=== PATIENT | male | born 1970 | race Caucasian/White ===

== ENCOUNTER 2025-03-23 07:01 | Day surgery (SDC) | payer OTHER ==
[~2025-03-23] VITALS: Ht 170.2 cm; Wt 111.3 kg
[~2025-03-23 07:01] MED LIST: ASCO500T20 PO; ASPI81TA39 PO; CETI10TA58 PO; CHOL500013 PO; FAMO20 PO; FLUT16H NASAL; GABA-1404 PO; MONT-35 PO; PANT40TA54 PO; ROSU10TA72 PO; SODIUM CHLORIDE 0.9% 1,000 ML ONE
[2025-03-23] MEDS ORDERED: MIDAZOLAM HCL 2 MG/2 ML VIAL ONE (07:46)
[2025-03-23] MEDS ORDERED: FentaNYL CITRATE PF 100 MCG/2 ML VIAL ONE (07:46)
[2025-03-23] MEDS: SODIUM CHLORIDE 0.9% 1,000 ML IV ONE (07:59)
[2025-03-23 09:45] VITALS: PULSE 68; RESP 18; O2SAT 100
[2025-03-23] MEDS ORDERED: LIDOCAINE 2% 11 ML JELLY ONE (12:00)
[2025-03-23] MEDS ORDERED: BENZOCAINE 20% 50 MCG/SPRAY 57 GM ONE (12:00)
[2025-03-23] MEDS ORDERED: ALBUTEROL SULFATE 2.5 MG/0.5 ML NEB SOLUTION NEB ONE (12:00)
[2025-03-23] MEDS ORDERED: LIDOCAINE 4% 50 ML SOLUTION ONE (12:00)
== END 2025-03-23 13:15 | disposition home or self-care (01) ==
LOC: SURGERY 07:01
PROVIDERS: ATTEND Internal Medicine Critical Care Medicine
DX: R05.3 Chronic cough (principal); J38.4 Edema of larynx; B37.0 Candidal stomatitis; Z79.899 Other long term (current) drug therapy; Z98.890 Other specified postprocedural states
CPT/HCPCS: 31623; 87206; 87101; 87220; 87070; 88108; 31624; 71045; 87015; J3010; J2250; J2919; J7030; J7613; Z7610